=== PATIENT | female | born 1965 | race Caucasian/White ===

== ENCOUNTER → 2021-05-17 | Outpatient (CLI) | payer SELFPAY ==
[~2021-05-17] VITALS: Ht 162.6 cm; Wt 79.4 kg
[~2021-05-17] MED LIST: FLUO20CA42 PO; LISI20TA26 PO; METF-397 PO; SIMV20TA26 PO; ZOLP10TA PO
== END | disposition home or self-care (01) ==
LOC: PREOP 05:39
PROVIDERS: ATTEND Surgery
DX: Z01.818 Encounter for other preprocedural examination (principal)

== ENCOUNTER 2021-05-28 09:01 | Day surgery (SDC) | payer OTHER ==
[~2021-05-28] VITALS: Ht 162.6 cm; Wt 79.4 kg
[2021-05-28] MEDS ORDERED: LACTATED RINGERS 1,000 ML IV ONE (09:11)
[2021-05-28] MEDS ORDERED: LACTATED RINGERS 1,000 ML IV STA (09:20)
[2021-05-28 09:25] VITALS: BP 134/77
[2021-05-28] MEDS ORDERED: HURRICAINE EXT TUBE (BENZOCAINE) XX PRN (09:30)
--- NOTE | 2021-05-28 09:51 | Progress Note-Pre Operative ---
Pre-Operative Progress Note H&P Reviewed The H&P was reviewed, patient examined and no changes noted. Time Seen by Provider: 09:49 Date H&P Reviewed: May 28, 2021 Time H&P Reviewed: 09:49 Pre-Operative Diagnosis: chronic gastritis, screening colonoscopy PEDRO FARIA DO May 28, 2021 09:51
[2021-05-28] MEDS ORDERED: MIDAZOLAM 2 MG/2 ML (VERSED) VIAL ONE (10:13)
[2021-05-28] MEDS ORDERED: PROPOFOL INJECTION 50 ML IV ONE (10:13)
[2021-05-28 11:10] VITALS: BP 130/70
[2021-05-28 11:15] VITALS: BP 129/75
--- NOTE | 2021-05-28 11:34 | Progress Note-Post Operative ---
Post-Operative Progess Note Surgeon (s)/Molding Room Supervisor (s) Surgeon PEDRO FARIA DO Molding Room Supervisor: Gonzalo Burt, MSIII Pre-Operative Diagnosis chronic gastritis, screening colonoscopy Post-Operative Diagnosis Gastritis Hiatal hernia polyps int hemorrhoids Procedure & Operative Findings Date of Procedure 05/28/21 Procedure Performed/Findings EGD with bx Colon with snare polypectomy PROCEDURE NOTE: After informed consent was obtained, the patient was brought to the endoscopy suite, placed in bed in left lateral decubitus position. She was administered IV sedation by the [employer] who then monitored vitals the entire time, heart rate, blood pressure and pulse ox and the scope was inserted down the mouth through the esophagus into the stomach. On the way down, noted some mild esophagitis, took a picture, pushed into the stomach, pushed past the antrum into the duodenum. Duodenum looked good. Pulled back and did a biopsy of antrum, then retroflexed the scope, saw small sliding hiatal hernia; very minimal space between scope and GE jxn. Took a picture of this and then pulled the scope into the GE junction, took another picture of the esophagitis and then did a biopsy of the GE junction. Pushed the scope back into the stomach, suctioned all the air out of the stomach. At this point pulled the scope up the esophagus and out the mouth. Switched camera, switched gloves, went down below, started the colonoscopy. Pushed all the way into about 140 cm to get all the way to cecum, took a picture of the appendiceal orifice, noted the ileocecal valve and then slowly withdrew the scope, insufflating to look circumferentially at the cleaning starting in the cecum, up the ascending colon to the hepatic flexure, then down the transverse colon, splenic flexure and into the descending colon. Found a couple of polyps here with snare polypectomy. Then down into the sigmoid where I found three more polyps; which I removed. Finally into the rectum where I found another polyp down by the anus. Retroflexed in the rectal vault, saw some minimal internal hemorrhoids and took a picture of them. I think I saw a few more polyps that I elected to leave for next scope. Probably in 1-3 years. The patient tolerated the procedure and she recovered in the endoscopy suite. Anesthesia Type IV sedation by anesthesia Estimated Blood Loss Estimated blood loss (mL): scant Specimens/Packing Specimens Removed antral bx body of stomach bx GE jxn bx desc colon polyps sigmoid polyps rectal polyp PEDRO FARIA DO May 28, 2021 11:34
--- NOTE | 2021-05-28 11:36 | Endoscopy Discharge Instruct ---
Endo Procedure/Findings Findings 1.: Gastritis 2.: Hiatal Hernia 3.: Polyp 4.: Internal Hemorrhoids Discharge Instructions - Activity: You might feel a little sleepy until tomorrow. This is due to the medicine you received to relax you. Until tomorrow, you should: NOT drive a car, operate machinery or power tools. NOT drink any alcoholic beverages. NOT make any important decisions or sign importortant papers. Do not return to work until tomorrow, unless otherwise instructed. Resume previous activities tomorrow. Diet: Start by taking liquids. If you tolerate liquids, advance to solid food. 1.: Colonoscopy in 1 year 2.: EGD in 1 year Notify Physician - If you experience excessive bleeding, unusual abdominal pain, fever, or chest pain, contact your doctor immediately. PEDRO FARIA DO May 28, 2021 11:35
[2021-05-28 11:56] VITALS: BP 125/76
--- NOTE | 2021-05-28 14:16 | Anesthesia-General Post-Op ---
MAC Patient Condition Mental Status/LOC: Same as Preop Cardiovascular: Satisfactory Nausea/Vomiting: Absent Respiratory: Satisfactory Pain: Controlled Complications: Absent Post Op Complications Complications None Follow Up Care/Instructions Patient Instructions None needed. Anesthesiology Discharge Order Discharge Order Patient was doing well this morning after the procedure with no complaints, stable vital signs, no apparent adverse anesthesia problems. SUSANNE ARAGON DO May 28, 2021 14:16
== END 2021-05-28 12:00 | disposition home or self-care (01) ==
LOC: ENDO 09:01
PROVIDERS: ATTEND Surgery
DX: Z12.11 Encounter for screening for malignant neoplasm of colon (principal); K29.50 Unspecified chronic gastritis without bleeding; K44.9 Diaphragmatic hernia without obstruction or gangrene; K63.5 Polyp of colon; K62.1 Rectal polyp; K64.8 Other hemorrhoids; K20.90 Esophagitis, unspecified without bleeding; E11.9 Type 2 diabetes mellitus without complications; Z79.84 Long term (current) use of oral hypoglycemic drugs; F17.210 Nicotine dependence, cigarettes, uncomplicated
CPT/HCPCS: 82947